=== PATIENT | female | born 1990 | race Hispanic/Latino ===

== ENCOUNTER 2017-08-27 08:57 | Emergency (ER) | payer SELFPAY ==
[2017-08-27 12:06] LABS: Urine Blood NEGATIVE (NEG); Urine Glucose NEGATIVE (NEG); Urine Protein NEGATIVE (NEG)
--- NOTE | 2017-08-27 12:17 | EKG ---
Test Date: 2017-08-27 Test Time: 11:23:39 Artist Color Separation: [place] MEASUREMENT RESULTS: Intervals: Rate: 70 ND: 184 QRSD: 130 QT: 444 QTc: 479 [place]: P: 29 ND: 184 QRS: -47 T: 37 INTERPRETIVE STATEMENTS: Normal sinus rhythm Right bundle branch block Left axis Abnormal ECG No previous ECG available for comparison Electronically Signed On 08-27-17 12:16:42 CDT by Viet Gregory
--- NOTE | 2017-08-27 12:20 | RAD REPORT ---
EXAM DESCRIPTION: RAD - Chest Single View - 08/27/2017 11:54 am CLINICAL HISTORY: Chest pain. COMPARISON: None. FINDINGS: Portable technique limits examination quality. The lungs are grossly clear. The heart is normal in size. No displaced fractures.Sternotomy wires. IMPRESSION: No acute intrathoracic process suspected.
[2017-08-27 12:33] LABS: Absolute Lymphocytes (CBC) 3.2 K/uL (0.7-4.9); Absolute Monocytes 0.4 K/uL (0.1-1.3); Absolute Neutrophil 3.6 K/uL (1.8-8.0); Basophils % 0.2 % (0-1.3); Eosinophils % 0.7 % (0-4.4); Hematocrit 44.9 % (36.0-45.0); Lymphocytes % 44.4 % (15.3-44.8); MCH 30.5 pg (27.0-35.0); MCV 89.8 fL (80-100); MPV 8.3 fL (7.6-11.3); Monocytes % 5.3 % (3.3-12.3)
[2017-08-27 12:42] LABS: Protime INR 1.02
[2017-08-27 12:45] LABS: Bicarbonate 24 mEq/L (21-31); Glucose Level 101 mg/dL (65-120); Potassium 3.7 mEq/L (3.6-5.0); Sodium Level 138 mEq/L (135-145)
[2017-08-27 12:51] LABS: ALT/SGPT 26 IU/L (10-60); AST/SGOT 20 IU/L (10-42); Albumin 4.9 g/dL (3.2-5.5); Alkaline Phosphatase 66 IU/L (42-121); BUN Blood Urea Nitrogen 8 mg/dL (6-20); Bilirubin Direct 0.1 mg/dL (0-0.2); Bilirubin Total 0.4 mg/dL (0.3-1.2); Creatine Phosphokinase 76 IU/L (22-269); Magnesium 1.9 mg/dL (1.8-2.5); Protein, Total 7.7 g/dL (6.0-8.3)
[2017-08-27 12:53] LABS: CKMB Creatine Kinase MB 0.7 ng/ml (0.3-4.0)
--- NOTE | 2017-08-27 13:33 | ER ---
Nurse's Notes [facility] Emergency Department Name: Brooke French Age: 27 yrs Sex: Female : 1990 Arrival Date: 08/27/2017 Time: 08:58 Bed 13 Private MD: Diagnosis: Chest pain, unspecified Presentation: 08/27 09:10 Presenting complaint: Patient states: denisse arm, and left leg pain and tingling, constant iw pain, left leg feels like it's asleep, started yesterday, previous heart surgery X 2 years, denies CP, denies abd pain. Transition of care: patient was not received from another setting of care. Onset of symptoms was August 26, 2017. Initial Sepsis Screen: Does the patient meet any 2 criteria? No. Patient's initial sepsis screen is negative. Does the patient have a suspected source of infection? No. Patient's initial sepsis screen is negative. Care prior to arrival: None. 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 - Social history:: Smoking status: Patient/guardian denies using tobacco. Screenin:29 Abuse screen: Denies threats or abuse. Denies injuries from another. Nutritional iw screening: No deficits noted. Tuberculosis screening: No symptoms or risk factors identified. 12:20 Fall Risk None identified. ph Assessment: 10:42 General: Appears in no apparent distress. Behavior is calm, cooperative. Pain: iw Complains of pain in right hand, left arm and left leg. Pain: Quality of pain is described as tingling. Neuro: Level of Consciousness is awake, alert, obeys commands, Oriented to person, place, time. GI: Bowel sounds present X 4 quads. Abd is soft and non tender X 4 quads. 12:19 Reassessment: Patient appears in no apparent distress at this time. Patient and/or ph family updated on plan of care and expected duration. Pain level reassessed. Patient is alert, oriented x 3, equal unlabored respirations, skin warm/dry/pink. Pt resting quietly, awaiting lab and radiology results, SO at bedside. 13:19 Reassessment: Patient appears in no apparent distress at this time. Patient and/or ph family updated on plan of care and expected duration. Pain level reassessed. Patient is alert, oriented x 3, equal unlabored respirations, skin warm/dry/pink. Pt resting quietly, family at bedside. 14:40 Reassessment: Patient appears in no apparent distress at this time. Patient and/or ph family updated on plan of care and expected duration. Pain level reassessed. Patient is alert, oriented x 3, equal unlabored respirations, skin warm/dry/pink. Pt discharged home w/ SO, instructed to follow up w/ tar pot man. Vital Signs: 09:15 BP 129 / 84; Pulse 84; Resp 16; Temp 98.2; Pulse Ox 100% on R/A; Weight 60.78 kg; iw Height 5 ft. 2 in. (157.48 cm); Pain 9/10; 12:00 BP 118 / 87; Pulse 86; Resp 18; Pulse Ox 99% on R/A; ph 13:16 BP 117 / 68; Pulse 70; Resp 18; Pulse Ox 99% on R/A; ph 14:39 BP 115 / 72; Pulse 76; Resp 18; Temp 97.9; Pulse Ox 99% on R/A; ph 09:15 Body Mass Index 24.51 (60.78 kg, 157.48 cm) iw ED Course: 08:58 Patient arrived in ED. as 09:14 Triage completed. iw 09:15 Arm band placed on. iw 10:35 Kimberley Joaquin, ARLEN is Primary Nurse. iw 10:41 Marquise Chen NP is PHCP. pm1 10:41 Rodger Carlin MD is Attending Physician. pm1 11:33 EKG done, by dietetic technician. reviewed by Marquise Chen NP. at1 11:55 XRAY Chest (1 view) In Process Unspecified. EDMS 11:55 X-ray completed. Portable x-ray completed in exam room. Patient tolerated procedure jf well. 12:20 Patient has correct armband on for positive identification. Placed in gown. Bed in low ph position. Call light in reach. Side rails up X 1. case monitor on. Pulse ox on. NIBP on. Warm blanket given. 12:20 Initial lab(s) drawn, by me, sent to lab. Urine collected: clean catch specimen, clear. mh5 Inserted saline lock: 22 gauge antecubital area, using aseptic technique. Blood collected. 14:41 No provider procedures requiring assistance completed. IV discontinued, intact, ph bleeding controlled, No redness/swelling at site. Pressure dressing applied. Administered Medications: 14:07 Drug: Ibuprofen 600 mg Route: PO; ph 14:07 Drug: Flexeril 10 mg Route: PO; ph Outcome: 13:32 Discharge ordered by MD. pm1 14:41 Discharged to home ambulatory, with significant other. ph 14:41 Condition: good 14:41 Discharge instructions given to patient, Instructed on discharge instructions, follow up and referral plans. medication usage, Demonstrated understanding of instructions, follow-up care, medications, Prescriptions given X 2. 14:43 Patient left the ED. ph Signatures: Dispatcher [employer] EDTanja Quispe as Kimberley Joaquin RN RN Lin rodas, operating room orderly EKG Tat1 Amanda Malik RN RN ph Marquise Chen, FORENSIC STRUCTURAL ENGINEER FORENSIC STRUCTURAL ENGINEER pm1 Leah Valenzuela [facility] Raghu Stone Corrections: (The following items were deleted from the chart) 12:23 12:22 BP 118 / 87; Pulse 86bpm; Resp 18bpm; Pulse Ox 99% RA; ph ph
--- NOTE | 2017-08-27 13:33 | EDPHYS ---
Physician Documentation [facility] Name: Brooke French Age: 27 yrs Sex: Female : 1990 Arrival Date: 08/27/2017 Time: 08:58 Bed 13 Private MD: ED Physician Rodger Carlin HPI: 08/27 12:00 This 27 yrs old Female presents to ER via Ambulatory with complaints of chest pm1 pain. 17:24 The patient or guardian reports chest pain that is located primarily in the anterior pm1 chest wall, left. Associated signs and symptoms: Pertinent negatives: abdominal pain, cough, diaphoresis, dizziness, headache, nausea, near syncope, palpitations, shortness of breath, syncope, vomiting. The chest pain is described as sharp. Duration: The patient or guardian reports a single episode. Modifying factors: The symptoms are alleviated by nothing. the symptoms are aggravated by deep breath, palpation of area. Severity of pain: in the emergency department the pain is unchanged. The patient has not recently seen a physician. Patient with onset of chest pain yesterday at 1600. Patient without any shortness of breath, n/v/d. Patient reports left and right wrist pain present for at least one week that has been getting worse. painful to pickup her child is 4 months old. 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 - Social history:: Smoking status: Patient/guardian denies using tobacco. ROS: 17:24 Constitutional: Negative for fever, chills, and weight loss, Eyes: Negative for injury, pm1 pain, redness, and discharge, ENT: Negative for injury, pain, and discharge, Neck: Negative for injury, pain, and swelling. 17:24 Respiratory: Negative for shortness of breath, cough, wheezing, and pleuritic chest pain, Abdomen/GI: Negative for abdominal pain, nausea, vomiting, diarrhea, and constipation, Back: Negative for injury and pain, : Negative for injury, bleeding, discharge, and swelling. 17:24 Skin: Negative for injury, rash, and discoloration, Neuro: Negative for headache, weakness, and seizure. 17:24 Cardiovascular: Positive for chest pain, Negative for edema, palpitations. 17:24 MS/extremity: Positive for pain, tingling, of the left and right wrist. Exam: 17:24 Constitutional: This is a well developed, well nourished patient who is awake, alert, pm1 and in no acute distress. Head/Face: Normocephalic, atraumatic. Eyes: Pupils equal round and reactive to light, extra-ocular motions intact. Lids and lashes normal. Conjunctiva and sclera are non-icteric and not injected. Cornea within normal limits. Periorbital areas with no swelling, redness, or edema. ENT: Nares patent. No nasal discharge, no septal abnormalities noted. Tympanic membranes are normal and external auditory canals are clear. Oropharynx with no redness, swelling, or masses, exudates, or evidence of obstruction, uvula midline. Mucous membranes moist. Neck: Trachea midline, no thyromegaly or masses palpated, and no cervical lymphadenopathy. Supple, full range of motion without nuchal rigidity, or vertebral point tenderness. No Meningismus. 17:24 Cardiovascular: Regular rate and rhythm with a normal S1 and S2. No gallops, murmurs, or rubs. Normal PMI, no JVD. No pulse deficits. Respiratory: Lungs have equal breath sounds bilaterally, clear to auscultation and percussion. No rales, rhonchi or wheezes noted. No increased work of breathing, no retractions or nasal flaring. Abdomen/GI: Soft, non-tender, with normal bowel sounds. No distension or tympany. No guarding or rebound. No evidence of tenderness throughout. Back: No spinal tenderness. No costovertebral tenderness. Full range of motion. Skin: Warm, dry with normal turgor. Normal color with no rashes, no lesions, and no evidence of cellulitis. Neuro: Awake and alert, GCS 15, oriented to person, place, time, and situation. Cranial nerves II-XII grossly intact. Motor strength 5/5 in all extremities. Sensory grossly intact. Cerebellar exam normal. Normal gait. 17:24 Chest/axilla: Inspection: normal, Palpation: tenderness, of the anterior aspect of left upper chest, that totally reproduces the patient's complaints. 17:24 Musculoskeletal/extremity: Extremities: grossly normal except: noted in the right wrist: positive Tinel's sign. Vital Signs: 09:15 BP 129 / 84; Pulse 84; Resp 16; Temp 98.2; Pulse Ox 100% on R/A; Weight 60.78 kg; iw Height 5 ft. 2 in. (157.48 cm); Pain 9/10; 12:00 BP 118 / 87; Pulse 86; Resp 18; Pulse Ox 99% on R/A; ph 13:16 BP 117 / 68; Pulse 70; Resp 18; Pulse Ox 99% on R/A; ph 14:39 BP 115 / 72; Pulse 76; Resp 18; Temp 97.9; Pulse Ox 99% on R/A; ph 09:15 Body Mass Index 24.51 (60.78 kg, 157.48 cm) iw MDM: 10:48 Patient medically screened. pm1 13:31 Data reviewed: vital signs. Data interpreted: Pulse oximetry: on room air is 99 %. pm1 Interpretation: normal. Counseling: I had a detailed discussion with the patient and/or guardian regarding: the historical points, exam findings, and any diagnostic results supporting the discharge/admit diagnosis, lab results, radiology results, the need for outpatient follow up, to return to the emergency department if symptoms worsen or persist or if there are any questions or concerns that arise at home. 08/27 11:39 Order name: Basic Metabolic Panel; Complete Time: 13:08 pm08/27 11:39 Order name: BNP; Complete Time: 13: pm08/27 11:39 Order name: CBC with Diff; Complete Time: 13:08 pm08/27 11:39 Order name: Ckmb; Complete Time: 13:08 pm08/27 11:39 Order name: CPK; Complete Time: 13:08 pm08/27 11:39 Order name: LFT's; Complete Time: 13:08 pm08/27 11:39 Order name: Magnesium; Complete Time: 13:08 pm08/27 11:39 Order name: PT-INR; Complete Time: 13:08 pm08/27 11:39 Order name: Ptt, Activated; Complete Time: 13:08 pm08/27 11:39 Order name: Troponin (emerg Dept Use Only); Complete Time: 13:08 pm1 08/27 11:39 Order name: XRAY Chest (1 view); Complete Time: 12:24 pm1 08/27 11:59 Order name: Urine Dipstick--Ancillary (enter results); Complete Time: 12:24 eb 08/27 12:00 Order name: Urine --Ancillary (enter results); Complete Time: 12:24 eb 08/27 11:11 Order name: EKG; Complete Time: 11:11 iw 08/27 11:11 Order name: EKG - Nurse/Tech; Complete Time: 12:22 iw 08/27 11:39 Order name: Cardiac monitoring; Complete Time: 12:21 pm1 08/27 11:39 Order name: IV Saline Lock; Complete Time: 12:21 pm1 08/27 11:39 Order name: Labs collected and sent; Complete Time: 12:21 pm1 08/27 11:39 Order name: O2 Per Protocol; Complete Time: 12:21 pm1 08/27 11:39 Order name: O2 Sat Monitoring; Complete Time: 12:21 pm1 08/27 11:39 Order name: Urine Dipstick-Ancillary (obtain specimen); Complete Time: 12:21 pm1 08/27 11:39 Order name: Urine Test (obtain specimen); Complete Time: 12:20 pm1 08/27 11:59 Order name: Urine Dipstick-Ancillary (obtain specimen); Complete Time: 12:20 eb Administered Medications: 14:07 Drug: Ibuprofen 600 mg Route: PO; ph 14:07 Drug: Flexeril 10 mg Route: PO; ph Disposition: 08/27/17 13:32 Discharged to Home. Impression: Chest pain, unspecified. - Condition is Stable. - Discharge Instructions: Nonspecific Chest Pain. - Prescriptions for Naprosyn 500 mg Oral Tablet - take 1 tablet by ORAL route 2 times per day take with food; 30 tablet. Cyclobenzaprine 10 mg Oral Tablet - take 1 tablet by ORAL route every 8 hours As needed; 30 tablet. - Medication Reconciliation Form, Thank You Letter form. - Follow up: Emergency Department; When: As needed; Reason: Worsening of condition. Follow up: Private Physician; When: 2 - 3 days; Reason: Recheck today's complaints, Continuance of care, Re-evaluation by your physician. - Problem is new. - Symptoms have improved. Addendum: 08/29/2017 10:45 Co-signature as Attending Physician, Rodger Carlin MD I agree with the assessment and w a plan of care. Signatures: Dispatcher [employer] Kimberley Tellez, RN RN Amanda Malik RN RN ph April, Marquise, IMPROVEMENT MANAGER IMPROVEMENT MANAGER pm1 Rodger Carlin MD MD wa Botello, Elizabeth eb Corrections: (The following items were deleted from the chart) 08/27 14:43 13:32 08/27/2017 13:32 Discharged to Home. Impression: Chest pain, unspecified. ph Condition is Stable. Forms are Medication Reconciliation Form, Thank You Letter, Antibiotic Education, Prescription Opioid Use. Follow up: Emergency Department; When: As needed; Reason: Worsening of condition. Follow up: Private Physician; When: 2 - 3 days; Reason: Recheck today's complaints, Continuance of care, Re-evaluation by your physician. Problem is new. Symptoms have improved. pm1
[2017-08-27] MEDS ORDERED: IBUPROFEN 400 MG TAB ONE (13:59)
[2017-08-27] MEDS ORDERED: IBUPROFEN 200 MG TAB PO ONE (13:59)
[2017-08-27] MEDS ORDERED: CYCLOBENZAPRINE 10 MG TAB ONE (14:02)
== END 2017-08-27 14:43 | disposition home or self-care (01) ==
LOC: ER 08:57
DX: R07.89 Other chest pain (principal)
CPT/HCPCS: 36415; 71045; 80048; 80076; 81003; 81025; 82550; 82553; 83735; 83880; 84484; 85025; 85610; 85730; 93005; 99285